=== PATIENT | female | born 1990 ===

== ENCOUNTER 2017-05-18 11:05 | Emergency (ER) | payer OTHER ==
[2017-05-18 11:09] VITALS: BP 115/66; PULSE 96; TEMP 98; O2SAT 98
[2017-05-18 11:10] VITALS: BMI 27.1
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
== END 2017-05-18 15:01 | disposition home or self-care (01) ==
LOC: H.ER 11:05
DX: S00.83XA Contusion of other part of head, initial encounter (principal); S59.902A Unspecified injury of left elbow, initial encounter; S69.92XA Unspecified injury of left wrist, hand and finger(s), initial encounter; Y08.89XA Assault by other specified means, initial encounter; Y93.89 Activity, other specified; Y92.89 Other specified places as the place of occurrence of the external cause; H11.31 Conjunctival hemorrhage, right eye

== ENCOUNTER 2018-08-18 08:41 | Emergency (ER) | payer BC, OTHER ==
[2018-08-18 09:18] VITALS: RESP 18
--- NOTE | 2018-08-18 09:18 | ED PDOC ---
HPI: Female Pain Time Seen by Provider: 08/18/18 09:10 Chief Complaint (Nursing): Female Genitourinary History Per: Patient Onset/Duration Of Symptoms: Days (3) Current Symptoms Are (Timing): Still Present Severity: Mild Quality Of Discomfort: Burning Associated Symptoms: Urinary Symptoms. denies: Fever, Nausea, Vomiting, Diarrhea Additional Complaint(s): Pelvic pain assoc with dysuria and vaginal itching x 2 weeks. Had been using cream for yeast infevtion with no improvement. Amenorrhea x 3 months. Past Medical History - Medical History PMH: Mitral Valve Prolapse (surgery in 2014) Other PMH: Ovarian cyst - Family History Family History: States: Unknown Family Hx - Home Medications Home Medications: Ambulatory Orders Medication Instructions Recorded Naproxen 500 mg PO BID #20 tab 03/03/18 Naproxen [Naprosyn] 500 mg PO Q12H #20 tab 08/18/18 - Allergies Allergies/Adverse Reactions: Allergies Allergy/AdvReac Type Severity Reaction Status Date / Time No Known Allergies Allergy Verified 03/03/18 10:53 Review of Systems ROS Statement: Except As Marked, All Systems Reviewed And Found Negative Gastrointestinal: Positive for: Abdominal Pain Genitourinary Female: Positive for: Dysuria Physical Exam - Physical Exam Appears: Positive for: Non-toxic, No Acute Distress Skin: Positive for: Normal Color, Warm, DRY Gastrointestinal/Abdominal: Positive for: Bowel Sounds, Soft. Negative for: Tenderness Pelvic Exam: Positive for: External Exam Normal, No Masses. Negative for: Active Bleeding, Discharge, Tender W/Cervical Motion, Tender Adnexa, Tender Uterus Back: Negative for: L CVA Tenderness, R CVA Tenderness Disposition - Clinical Impression Clinical Impression: Ovarian cyst - Patient ED Disposition Is Patient to be Admitted: No Counseled Patient/Family Regarding: Studies Performed, Diagnosis, Need For Followup, Rx Given - Disposition Referrals: FAMILY PROVIDER,NO [Primary Care Provider[facility] Disposition: Routine/Home Disposition Time: 11:12 Condition: FAIR Prescriptions: Naproxen [Naprosyn] 500 mg PO Q12H #20 tab Instructions: Ovarian Cysts Forms: [employer] (Martiniquais) Print Language: CITIZEN OF [place]
[2018-08-18 10:39] VITALS: BMI 31.6
--- NOTE | 2018-08-18 11:17 | US ---
Date of service: 08/18/2018 HISTORY: ovarian cyst COMPARISON: 03/03/2018. TECHNIQUE: Transvaginal pelvic ultrasound was performed FINDINGS: UTERUS: Measures 7.3 x 5.2 x 3.8 cm. Anteverted, normal in size and appearance. No fibroid or other mass lesion seen. ENDOMETRIUM: Measures 3.0 mm in diameter. Normal in appearance. CERVIX: No cervical abnormality identified. RIGHT OVARY: Measures 4.2 x 3.9 x 3.0 cm. No solid mass. Normal flow. There is a 3.8 x 3.6 x 2.6 cm simple cyst. LEFT OVARY: Measures 4.7 x 5.0 x 4.2 cm. No solid mass. Normal flow. There is a 4.3 x 4.4 x 3.6 cm septated cyst. FREE FLUID: Small amount of free fluid in the cul de sac is likely physiologic. OTHER FINDINGS: None. IMPRESSION: 1. 3.8 x 3.6 x 2.6 cm simple cyst in the right ovary. Follow-up ultrasound in 3-6 month interval is recommended to assess stability/resolution. 2. 4.3 x 4.4 x 3.6 cm septated cyst in the left ovary slightly decreased in size since the prior examination. Follow-up ultrasound in 3-6 months interval is recommended to assess stability/resolution
[2018-08-18 11:26] VITALS: BP 110/69; PULSE 75; TEMP 98.6; O2SAT 98
== END 2018-08-18 11:35 | disposition home or self-care (01) ==
LOC: SUPCPDRO 08:41 → H.ER 08:41 → MERGE 08:41 → H.ER 11:35
DX: N83.209 Unspecified ovarian cyst, unspecified side (principal); I34.1 Nonrheumatic mitral (valve) prolapse